=== PATIENT | male | born 1960 ===

== ENCOUNTER 2023-12-23 09:01 | Inpatient (IN) | payer OTHER ==
[~2023-12-23] VITALS: Ht 167.6 cm; Wt 72.6 kg
[2023-12-23] MEDS ORDERED: OSTERA TABLET1 EACH PO (17:26)
[2023-12-23] MEDS ORDERED: FLOMAX0.4 MG PO (17:27)
[2023-12-23] MEDS ORDERED: GLYCOTROL CAPS1 EACH PO (17:27)
[2023-12-23] MEDS ORDERED: SINEMET 25-1001 EACH PO (17:29)
[2023-12-23] MEDS ORDERED: TRAZODONE50 MG PO (17:30)
[2023-12-23] MEDS ORDERED: LIPITOR10 MG PO (17:30)
[2023-12-23] MEDS ORDERED: REMERON SOLTAB45 MG PO (17:42)
[2023-12-23] MEDS ORDERED: PROZAC40 M1 PO (17:43)
[2023-12-23] MEDS ORDERED: BENZONATATE100 M1 PO (17:43)
[2023-12-23] MEDS ORDERED: COLACE100 MG PO (17:49)
[2023-12-23] MEDS ORDERED: DILTIAZEM 24HR180 MG PO (17:50)
[2023-12-23] MEDS ORDERED: TENORMIN25 M1 PO (17:51)
[2023-12-23] MEDS ORDERED: SEROQUEL300 MG PO (17:53)
[2023-12-23] MEDS ORDERED: SEROQUEL100 MG PO (17:54)
[2023-12-23] MEDS ORDERED: VISTARIL25 M2 PO (17:56)
[2023-12-23] MEDS ORDERED: FEOSOL325 MG PO (18:16)
[2023-12-23] MEDS ORDERED: IBU800 MG PO (18:18)
[2023-12-23] MEDS ORDERED: PLAVIX75 M1 PO (18:19)
[2023-12-23] MEDS ORDERED: ASPIRIN ADULT L81 M2 PO (18:21)
[2023-12-23] MEDS ORDERED: DAILY VITE1 EACH PO (18:22)
[2023-12-23] MEDS ORDERED: hydrOXYzine pamoate 25 MG CAP PO PRN (18:25)
[2023-12-23] MEDS ORDERED: BENZONATATE 100 MG CAP PO PRN (18:30)
[2023-12-23] MEDS ORDERED: DOCUSATE SODIUM 100 MG CAP PO PRN (18:30)
[2023-12-23] MEDS ORDERED: IBUPROFEN 600 MG TAB PO PRN (18:55)
[2023-12-23] MEDS ORDERED: LORazepam 2 MG/ML VIAL IM PRN (19:10)
[2023-12-23] MEDS ORDERED: Ziprasidone Mesylate 20 MG VIAL IM PRN (19:20)
[2023-12-23] MEDS ORDERED: Water, Sterile 10 ML VIAL IM PRN (19:25)
[2023-12-23] MEDS ORDERED: Magnesium Hydroxide 30 ML UDC PO PRN (19:30)
[2023-12-23] MEDS ORDERED: MG-AL HYDROXIDE/SIMETICONE 30 ML UDC PO PRN (19:30)
[2023-12-23] MEDS ORDERED: ACETAMINOPHEN 325 MG TAB PO PRN (19:30)
[2023-12-23] MEDS ORDERED: Menthol/Zinc Oxide 4 GM THIN T PRN (19:35)
[2023-12-23 20:00] VITALS: BP 107/65
[2023-12-23] MEDS ORDERED: Carbidopa/Levodopa 25/100MG 1 TAB TAB PO SCH (21:00)
[2023-12-23] MEDS ORDERED: cloZAPine 25 MG TAB PO SCH (21:00)
[2023-12-23] MEDS ORDERED: Mirtazapine 15 MG TAB PO SCH (21:00)
[2023-12-23] MEDS ORDERED: QUETIAPINE FUMARATE 100 MG TAB PO SCH ×2 (21:00→22:00)
[2023-12-24 06:34] LABS: BASO % 0.5 % (0.0-1.0); EOS # 0.2 10*3/uL (0.0-0.4); EOS % 3.1 % (1.0-4.0); HEMATOCRIT 33.6 % (42.0-52.0); LYMPH # 1.8 10*3/uL (1.3-4.4); MEAN CELL VOLUME 103.4 fl (80.0-94.0); MEAN CORPUSCULAR HGB 33.2 pg (27.0-31.0); MEAN CORPUSCULAR HGB CONC 32.1 g/dl (33.0-37.0); MONO # 0.6 10*3/uL (0.1-1.0); MONO % 8.4 % (3.0-9.0); NEUT % 60.4 % (47.0-73.0); PLATELET COUNT AUTOMATED 239 10*3/uL (130-400); RED BLOOD COUNT 3.25 10*6/uL (4.50-5.90); RED CELL DISTRI WIDTH 13.7 % (0-14.5); WHITE BLOOD COUNT 6.6 10*3/uL (4.8-10.8)
[2023-12-24 07:03] LABS: ALKALINE PHOSPHATASE 102 U/L (46-116); BUN 15 mg/dl (9-23); CHLORIDE 108 mmol/L (98-107); CHOLESTEROL 134 mg/dL (<200); LDL CHOLESTEROL 62 mg/dL (9-159); TOTAL PROTEIN 5.8 gm/dL (6.0-8.0); TRIGLYCERIDES 120 mg/dl (<150)
[2023-12-24 07:04] LABS: VITAMIN D, 25-HYDROXY 61.8 ng/mL (30-100)
[2023-12-24 07:11] LABS: SGPT/ALT < 7 U/L (5-49)
[2023-12-24 08:00] VITALS: BP 102/50
[2023-12-24] MEDS ORDERED: QUETIAPINE FUMARATE 100 MG TAB PO SCH (09:00)
[2023-12-24] MEDS ORDERED: Tamsulosin Hydrochloride 0.4 MG CAP PO SCH (09:00)
[2023-12-24] MEDS ORDERED: ATENOLOL 25 MG TAB PO SCH (09:00)
[2023-12-24] MEDS ORDERED: Clopidogrel Hydrogen Sulfate 75 MG TAB PO SCH (09:00)
[2023-12-24] MEDS ORDERED: FERROUS SULFATE 325 MG TAB PO SCH (09:00)
[2023-12-24] MEDS ORDERED: ATORVASTATIN CALCIUM 10 MG TAB PO SCH (09:00)
[2023-12-24] MEDS ORDERED: DILTIAZEM CD 180 MG CAP PO SCH (09:00)
[2023-12-24] MEDS ORDERED: ASPIRIN ENTERIC COATED 81 MG TAB PO SCH (09:00)
[2023-12-24 20:00] VITALS: BP 100/64
[2023-12-24] MEDS ORDERED: cloZAPine 25 MG TAB PO SCH (21:00)
[2023-12-24] MEDS ORDERED: RISPERIDONE 2 MG TAB PO SCH (21:00)
[2023-12-25 08:46] VITALS: BP 122/70
[2023-12-25] MEDS ORDERED: cloZAPine 25 MG TAB PO SCH (09:00)
[2023-12-25 20:00] VITALS: BP 117/57
[2023-12-25] MEDS ORDERED: cloZAPine 100 MG TAB PO SCH (21:00)
[2023-12-25] MEDS ORDERED: clomiPRAMINE Hydrochloride 25 MG CAP PO SCH (21:00)
[2023-12-26 07:39] VITALS: BP 108/58
[2023-12-26] MEDS ORDERED: RISPERIDONE 125 MG/0.35 ML SUSER.SYR SQ SCH (09:00)
[2023-12-26] MEDS ORDERED: RISPERIDONE 250 MG/0.7 ML SQ SCH (12:00)
[2023-12-26 20:00] VITALS: BP 90/54
[2023-12-26] MEDS ORDERED: cloZAPine 100 MG TAB PO SCH (21:00)
[2023-12-26] MEDS ORDERED: clomiPRAMINE Hydrochloride 25 MG CAP PO SCH (21:00)
[2023-12-27 08:00] VITALS: BP 121/67
[2023-12-27 20:00] VITALS: BP 117/53
[2023-12-27] MEDS ORDERED: clomiPRAMINE Hydrochloride 25 MG CAP PO SCH (21:00)
[2023-12-28 07:39] VITALS: BP 119/59
[2023-12-28 20:48] VITALS: BP 98/59
[2023-12-29 08:22] VITALS: BP 111/62
[2023-12-29 20:00] VITALS: BP 106/54
[2023-12-30 07:38] VITALS: BP 112/60
[2023-12-30 20:00] VITALS: BP 105/66
[2023-12-31 07:52] VITALS: BP 111/64
[2023-12-31 20:00] VITALS: BP 102/58
[2024-01-01 07:06] LABS: BASO % 0.4 % (0.0-1.0); EOS # 0.2 10*3/uL (0.0-0.4); EOS % 2.1 % (1.0-4.0); HEMATOCRIT 39.1 % (42.0-52.0); LYMPH # 1.7 10*3/uL (1.3-4.4); LYMPH % 23.6 % (27.0-41.0); MEAN CELL VOLUME 105.1 fl (80.0-94.0); MEAN CORPUSCULAR HGB 33.1 pg (27.0-31.0); MEAN CORPUSCULAR HGB CONC 31.5 g/dl (33.0-37.0); MEAN PLATELET VOLUME 9.3 fl (9.6-12.3); MONO # 0.7 10*3/uL (0.1-1.0); MONO % 9.7 % (3.0-9.0); NEUT # 4.5 10*3/uL (2.3-7.9); NEUT % 63.8 % (47.0-73.0); PLATELET COUNT AUTOMATED 241 10*3/uL (130-400); RED BLOOD COUNT 3.72 10*6/uL (4.50-5.90); RED CELL DISTRI WIDTH 14.3 % (0-14.5)
[2024-01-01 07:28] LABS: ALKALINE PHOSPHATASE 109 U/L (46-116); BUN 14 mg/dl (9-23); CHLORIDE 109 mmol/L (98-107); POTASSIUM 4.6 mmol/L (3.4-5.1); SGPT/ALT 10 U/L (5-49)
[2024-01-01 08:00] VITALS: BP 118/81
[2024-01-01 20:00] VITALS: BP 105/64
[2024-01-02 08:00] VITALS: BP 116/62
[2024-01-02 12:14] VITALS: BP 122/69
[2024-01-02 15:27] LABS: BILIRUBIN Negative (Negative); BLOOD 3+ (Negative); CLARITY Cloudy (Clear); COLOR Yellow (Yellow); GLUCOSE Negative (Negative); KETONE Negative (Negative); LEUKO ESTERASE 1+ (Negative); NITRITE Negative (Negative); SPECIFIC GRAVITY 1.025 (1.001-1.030)
[2024-01-02 15:43] LABS: BACTERIA 1+; WBC TNTC wbc/hpf (0-5)
[2024-01-02] MEDS ORDERED: Fosfomycin Tromethamine 3 GM PDS PO SCH (19:50)
[2024-01-02 20:00] VITALS: BP 100/61
[2024-01-03 07:47] VITALS: BP 105/60
[2024-01-03] MEDS ORDERED: UZEDY250 MG/0.7 SQ (09:54)
[2024-01-03 19:04] VITALS: BP 107/64
[2024-01-04 08:00] VITALS: BP 130/80
[2024-01-04] MEDS ORDERED: CLOMIPRAMINE25 MG PO (09:38)
[2024-01-04] MEDS ORDERED: CLOZAPINE100 MG PO (09:41)
[2024-01-21] MEDS ORDERED: RISPERIDONE 125 MG/0.35 ML SUSER.SYR SQ SCH (09:00)
== END 2024-01-04 17:24 | DRG 750 ==
LOC: 3N 09:01
PROVIDERS: Counselor Professional; ADMIT Psychiatry & Neurology Psychiatry; ATTEND Psychiatry & Neurology Psychiatry
PROC: GZHZZZZ Group Psychotherapy (ICD-10-PCS; principal; 2023-12-23)
PROC: GZ56ZZZ Individual Psychotherapy, Supportive (ICD-10-PCS; 2023-12-23)
PROC: 0HBRXZZ Excision of Toe Nail, External Approach (ICD-10-PCS; 2024-01-03)
PROC: 0HBRXZZ Excision of Toe Nail, External Approach (ICD-10-PCS; 2024-01-03)
PROC: 0HBRXZZ Excision of Toe Nail, External Approach (ICD-10-PCS; 2024-01-03)
PROC: 0HBRXZZ Excision of Toe Nail, External Approach (ICD-10-PCS; 2024-01-03)
PROC: 0HBRXZZ Excision of Toe Nail, External Approach (ICD-10-PCS; 2024-01-03)
PROC: 0HBRXZZ Excision of Toe Nail, External Approach (ICD-10-PCS; 2024-01-03)
PROC: 0HBRXZZ Excision of Toe Nail, External Approach (ICD-10-PCS; 2024-01-03)
PROC: 0HBRXZZ Excision of Toe Nail, External Approach (ICD-10-PCS; 2024-01-03)
PROC: 0HBRXZZ Excision of Toe Nail, External Approach (ICD-10-PCS; 2024-01-03)
PROC: 0HBRXZZ Excision of Toe Nail, External Approach (ICD-10-PCS; 2024-01-03)
DX: F25.0 Schizoaffective disorder, bipolar type (principal); E44.0 Moderate protein-calorie malnutrition; G20.A1 Parkinson's disease without dyskinesia, without mention of fluctuations; R45.851 Suicidal ideations; R33.9 Retention of urine, unspecified; N40.0 Benign prostatic hyperplasia without lower urinary tract symptoms; N18.9 Chronic kidney disease, unspecified; I12.9 Hypertensive chronic kidney disease with stage 1 through stage 4 chronic kidney disease, or unspecified chronic kidney disease; D53.9 Nutritional anemia, unspecified; R73.9 Hyperglycemia, unspecified; B35.1 Tinea unguium; F42.9 Obsessive-compulsive disorder, unspecified; E78.5 Hyperlipidemia, unspecified; Z79.899 Other long term (current) drug therapy; Z79.01 Long term (current) use of anticoagulants; Z68.25 Body mass index [BMI] 25.0-25.9, adult; Z79.2 Long term (current) use of antibiotics; Z87.891 Personal history of nicotine dependence

== ENCOUNTER 2024-04-21 16:59 | Inpatient (IN) | payer OTHER ==
[~2024-04-21] VITALS: Ht 162.5 cm; Wt 70.3 kg
[~2024-04-21 16:59] MED LIST: ASPIRIN ADULT L81 M2 PO; BENZONATATE100 M1 PO; CLOMIPRAMINE25 MG PO; CLOZAPINE100 MG PO; COLACE100 MG PO; DAILY VITE1 EACH PO; DILTIAZEM 24HR180 MG PO; FEOSOL325 MG PO; FLOMAX0.4 MG PO; GLYCOTROL CAPS1 EACH PO; IBU800 MG PO; LIPITOR10 MG PO; OSTERA TABLET1 EACH PO; PLAVIX75 M1 PO; PROZAC40 M1 PO; REMERON SOLTAB45 MG PO; SEROQUEL100 MG PO; SEROQUEL300 MG PO; SINEMET 25-1001 EACH PO; TENORMIN25 M1 PO; TRAZODONE50 MG PO; UZEDY250 MG/0.7 SQ; VISTARIL25 M2 PO
[2024-04-21 17:15] VITALS: BP 162/100
[2024-04-21 17:43] LABS: BASO % 0.3 % (0.0-1.0); EOS # 0.1 10*3/uL (0.0-0.4); EOS % 1.7 % (1.0-4.0); HEMATOCRIT 38.3 % (42.0-52.0); MEAN CORPUSCULAR HGB 33.2 pg (27.0-31.0); MEAN CORPUSCULAR HGB CONC 33.2 g/dl (33.0-37.0); MEAN PLATELET VOLUME 9.5 fl (9.6-12.3); MONO # 0.6 10*3/uL (0.1-1.0); NEUT % 60.9 % (47.0-73.0); PLATELET COUNT AUTOMATED 207 10*3/uL (130-400); RED BLOOD COUNT 3.83 10*6/uL (4.50-5.90); RED CELL DISTRI WIDTH 14.1 % (0-14.5); WHITE BLOOD COUNT 6.6 10*3/uL (4.8-10.8)
[2024-04-21 18:05] LABS: BUN 22 mg/dl (9-23); CHLORIDE 104 mmol/L (98-107); POTASSIUM 4.3 mmol/L (3.4-5.1)
[2024-04-21 18:07] LABS: BILIRUBIN Negative (Negative); BLOOD Negative (Negative); CLARITY Clear (Clear); COLOR Yellow (Yellow); GLUCOSE Negative (Negative); KETONE Negative (Negative); LEUKO ESTERASE Negative (Negative); NITRITE Negative (Negative); PH 5.5 (4.5-8.0); UROBILINOGEN 0.2 E.U./dl (0.0-1.0)
[2024-04-21 18:11] LABS: URINE AMPHETAMINES Negative (1000ng/ml); URINE BARBITURATES Negative (200ng/ml); URINE BENZODIAZEPINES Negative (200ng/ml); URINE CANNABINOIDS (THC) Negative (50ng/ml); URINE COCAINE Negative (300ng/ml); URINE METHADONE Negative (300ng/ml); URINE OPIATES Negative (300ng/ml); URINE PHENCYCLIDINE Negative (25ng/ml)
[2024-04-21 18:14] LABS: BACTERIA TRACE; EPITHELIAL CELLS 0-2; RBC 0-2 rbc/hpf (0-2); WBC 0-2 wbc/hpf (0-5)
[2024-04-21 18:25] LABS: ETHYL ALCOHOL < 3.0 mg/dl (<3)
[2024-04-21 19:39] VITALS: BP 129/81
[2024-04-21 20:45] VITALS: BP 144/89
[2024-04-21] MEDS ORDERED: CLONAZEPAM1 MG PO (21:56)
[2024-04-21] MEDS ORDERED: CLOZARIL50 MG PO (22:00)
[2024-04-21] MEDS ORDERED: EXELON1 EAC2 TD (22:06)
[2024-04-21] MEDS ORDERED: ATARAX,VISTARIL50 MG PO (22:09)
[2024-04-21] MEDS ORDERED: hydrOXYzine pamoate 25 MG CAP PO PRN (22:10)
[2024-04-21] MEDS ORDERED: MIDODRINE HCL10 MG PO (22:14)
[2024-04-21] MEDS ORDERED: MIRALAX17 GM PO (22:19)
[2024-04-21] MEDS ORDERED: LORazepam 1 MG TAB PO PRN (22:25)
[2024-04-21] MEDS ORDERED: LORazepam 2 MG/ML VIAL IM PRN (22:25)
[2024-04-21] MEDS ORDERED: Ziprasidone Mesylate 20 MG VIAL IM PRN (22:30)
[2024-04-21] MEDS ORDERED: Water, Sterile 10 ML VIAL IM PRN (22:30)
[2024-04-21] MEDS ORDERED: Magnesium Hydroxide 30 ML UDC PO PRN (22:35)
[2024-04-21] MEDS ORDERED: ACETAMINOPHEN 325 MG TAB PO PRN (22:35)
[2024-04-21] MEDS ORDERED: Menthol/Zinc Oxide 4 GM THIN T PRN (22:35)
[2024-04-21] MEDS ORDERED: MG-AL HYDROXIDE/SIMETICONE 30 ML UDC PO PRN (22:35)
[2024-04-22] MEDS ORDERED: Polyethylene Glycol 3350 17 GM PACKET PO PRN (02:35)
[2024-04-22] MEDS ORDERED: DOCUSATE SODIUM 100 MG CAP PO PRN (02:35)
[2024-04-22 06:59] LABS: BASO % 0.6 % (0.0-1.0); EOS # 0.1 10*3/uL (0.0-0.4); HEMATOCRIT 42.4 % (42.0-52.0); MEAN CELL VOLUME 101.4 fl (80.0-94.0); MEAN CORPUSCULAR HGB 32.5 pg (27.0-31.0); MEAN CORPUSCULAR HGB CONC 32.1 g/dl (33.0-37.0); MEAN PLATELET VOLUME 8.9 fl (9.6-12.3); MONO # 0.5 10*3/uL (0.1-1.0); MONO % 8.7 % (3.0-9.0); NEUT # 3.4 10*3/uL (2.3-7.9); PLATELET COUNT AUTOMATED 213 10*3/uL (130-400); RED BLOOD COUNT 4.18 10*6/uL (4.50-5.90); RED CELL DISTRI WIDTH 13.6 % (0-14.5); WHITE BLOOD COUNT 5.4 10*3/uL (4.8-10.8)
[2024-04-22 07:40] LABS: ALKALINE PHOSPHATASE 105 U/L (46-116); BUN 15 mg/dl (9-23); CHLORIDE 103 mmol/L (98-107); CHOLESTEROL 149 mg/dL (<200); LDL CHOLESTEROL 68 mg/dL (9-159); POTASSIUM 4.3 mmol/L (3.4-5.1); SGPT/ALT 14 U/L (5-49); TOTAL PROTEIN 6.3 gm/dL (6.0-8.0); TRIGLYCERIDES 88 mg/dl (<150)
[2024-04-22 08:07] LABS: VITAMIN D, 25-HYDROXY 107.8 ng/mL (30-100)
[2024-04-22 08:43] VITALS: BP 114/84
[2024-04-22] MEDS ORDERED: Tamsulosin Hydrochloride 0.4 MG CAP PO SCH (09:00)
[2024-04-22] MEDS ORDERED: FERROUS SULFATE 325 MG TAB PO SCH (09:00)
[2024-04-22] MEDS ORDERED: Carbidopa/Levodopa 25/100MG 1 TAB TAB PO SCH (09:00)
[2024-04-22] MEDS ORDERED: Midodrine Hydrochloride 5 MG TAB PO SCH (09:00)
[2024-04-22] MEDS ORDERED: ASPIRIN ENTERIC COATED 81 MG TAB PO SCH (09:00)
[2024-04-22] MEDS ORDERED: RIVASTIGMINE 13.3 MG/24 HR TDM T SCH ×2 (09:00)
[2024-04-22] MEDS ORDERED: clonAZEPAM 1 MG TAB PO SCH (09:00)
[2024-04-22] MEDS ORDERED: ATORVASTATIN CALCIUM 10 MG TAB PO SCH (09:00)
[2024-04-22] MEDS ORDERED: Clopidogrel Hydrogen Sulfate 75 MG TAB PO SCH (09:00)
[2024-04-22] MEDS ORDERED: RISPERIDONE 250 MG/0.7 ML SQ SCH (11:00)
[2024-04-22 20:00] VITALS: BP 116/67
[2024-04-22] MEDS ORDERED: Memantine Hydrochloride 5 MG TAB PO SCH (21:00)
[2024-04-22] MEDS ORDERED: clomiPRAMINE Hydrochloride 25 MG CAP PO SCH (21:00)
[2024-04-23 08:00] VITALS: BP 136/83
[2024-04-23] MEDS ORDERED: hydrOXYzine hydrochloride 50 MG/ML VIAL IM ONE (14:10)
[2024-04-23 20:00] VITALS: BP 147/82
[2024-04-24 08:09] VITALS: BP 141/80
[2024-04-24] MEDS ORDERED: RISPERIDONE 250 MG/0.7 ML SQ SCH (09:00)
[2024-04-24] MEDS ORDERED: clonAZEPAM 0.5 MG TAB PO SCH (13:00)
[2024-04-24 20:00] VITALS: BP 137/78
[2024-04-24] MEDS ORDERED: clomiPRAMINE Hydrochloride 25 MG CAP PO SCH (21:00)
[2024-04-25 07:52] VITALS: BP 130/75
[2024-04-25] MEDS ORDERED: LIDOCAINE 1 EA PATCH T SCH ×2 (10:45→12:00)
[2024-04-25 20:00] VITALS: BP 121/73
[2024-04-25] MEDS ORDERED: Memantine Hydrochloride 5 MG TAB PO SCH (21:00)
[2024-04-26 08:00] VITALS: BP 133/75
[2024-04-26] MEDS ORDERED: hydrOXYzine pamoate 25 MG CAP PO SCH (13:00)
[2024-04-26 20:00] VITALS: BP 132/70
[2024-04-26] MEDS ORDERED: Memantine Hydrochloride 10 MG TAB PO SCH (21:00)
[2024-04-26] MEDS ORDERED: Rivastigmine Tartrate 3 MG CAP PO SCH (21:00)
[2024-04-27 01:06] LABS: TOTAL (CLO+NORCLO) 314 ng/mL (220-500)
[2024-04-27 06:41] LABS: BASO % 0.2 % (0.0-1.0); EOS % 0.2 % (1.0-4.0); HEMATOCRIT 38.7 % (42.0-52.0); MEAN CELL VOLUME 99.2 fl (80.0-94.0); MEAN CORPUSCULAR HGB 33.1 pg (27.0-31.0); MEAN CORPUSCULAR HGB CONC 33.3 g/dl (33.0-37.0); MEAN PLATELET VOLUME 9.1 fl (9.6-12.3); MONO # 0.5 10*3/uL (0.1-1.0); MONO % 7.8 % (3.0-9.0); NEUT # 4.7 10*3/uL (2.3-7.9); NEUT % 78.9 % (47.0-73.0); PLATELET COUNT AUTOMATED 195 10*3/uL (130-400); RED CELL DISTRI WIDTH 13.8 % (0-14.5); WHITE BLOOD COUNT 5.9 10*3/uL (4.8-10.8)
[2024-04-27 07:16] LABS: ALKALINE PHOSPHATASE 111 U/L (46-116); BUN 14 mg/dl (9-23); CHLORIDE 103 mmol/L (98-107); POTASSIUM 4.9 mmol/L (3.4-5.1); SGPT/ALT 19 U/L (5-49)
[2024-04-27 08:00] VITALS: BP 139/86
[2024-04-27] MEDS ORDERED: Memantine Hydrochloride 5 MG TAB PO SCH (09:00)
[2024-04-27] MEDS ORDERED: clonAZEPAM 2 MG TAB PO SCH (13:00)
[2024-04-27 20:00] VITALS: BP 144/67
[2024-04-27] MEDS ORDERED: Rivastigmine Tartrate 1.5 MG CAP PO SCH (21:00)
[2024-04-27] MEDS ORDERED: Memantine Hydrochloride 10 MG TAB PO SCH (21:00)
[2024-04-28 07:53] VITALS: BP 117/73
[2024-04-28] MEDS ORDERED: Rivastigmine Tartrate 3 MG CAP PO SCH (09:00)
[2024-04-28 14:33] LABS: BILIRUBIN Negative (Negative); BLOOD Negative (Negative); CLARITY Clear (Clear); COLOR Yellow (Yellow); GLUCOSE Negative (Negative); KETONE Negative (Negative); LEUKO ESTERASE Negative (Negative); NITRITE Negative (Negative); SPECIFIC GRAVITY 1.015 (1.001-1.030); UROBILINOGEN 0.2 E.U./dl (0.0-1.0)
[2024-04-28 14:50] LABS: RBC 0-2 rbc/hpf (0-2); WBC 0-2 wbc/hpf (0-5)
[2024-04-28 20:00] VITALS: BP 124/68
[2024-04-29 08:35] VITALS: BP 126/71
[2024-04-29] MEDS ORDERED: Glycerin/Hypromellose/Polyet 300 DRP BOT OPH SCH (16:30)
[2024-04-29 20:00] VITALS: BP 102/52
[2024-04-30 08:00] VITALS: BP 110/63
[2024-04-30] MEDS ORDERED: clonAZEPAM 1 MG TAB PO SCH (09:00)
[2024-04-30 20:00] VITALS: BP 101/64
[2024-05-01 08:00] VITALS: BP 130/72
[2024-05-01 08:51] VITALS: BP 130/72
[2024-05-01] MEDS ORDERED: clomiPRAMINE Hydrochloride 25 MG CAP PO SCH ×2 (09:00→21:00)
[2024-05-01 20:00] VITALS: BP 128/63
[2024-05-02 08:33] VITALS: BP 134/43
[2024-05-02 20:00] VITALS: BP 113/62
[2024-05-03 06:32] LABS: BASO % 0.3 % (0.0-1.0); EOS % 0.1 % (1.0-4.0); HEMATOCRIT 36.6 % (42.0-52.0); MEAN CELL VOLUME 102.2 fl (80.0-94.0); MEAN CORPUSCULAR HGB 32.7 pg (27.0-31.0); MEAN PLATELET VOLUME 9.2 fl (9.6-12.3); MONO # 0.6 10*3/uL (0.1-1.0); MONO % 7.8 % (3.0-9.0); NEUT # 5.4 10*3/uL (2.3-7.9); NEUT % 71.2 % (47.0-73.0); PLATELET COUNT AUTOMATED 201 10*3/uL (130-400); RED BLOOD COUNT 3.58 10*6/uL (4.50-5.90); RED CELL DISTRI WIDTH 13.9 % (0-14.5); WHITE BLOOD COUNT 7.6 10*3/uL (4.8-10.8)
[2024-05-03 06:51] LABS: BUN 17 mg/dl (9-23); CHLORIDE 102 mmol/L (98-107); POTASSIUM 4.6 mmol/L (3.4-5.1)
[2024-05-03 07:52] VITALS: BP 121/75
[2024-05-03] MEDS ORDERED: Dextromethorphan/Quinidine 20-10 mg cap PO ONE (16:00)
[2024-05-03] MEDS ORDERED: hydrOXYzine pamoate 25 MG CAP PO ONE (16:00)
[2024-05-03 20:00] VITALS: BP 131/64
[2024-05-03] MEDS ORDERED: hydrOXYzine pamoate 25 MG CAP PO SCH (20:00)
[2024-05-04] MEDS ORDERED: hydrOXYzine pamoate 25 MG CAP PO SCH
[2024-05-04] MEDS ORDERED: SODIUM CHLORIDE 0.9% 1,000 ML IV ONE ×2 (01:20→01:34)
[2024-05-04] MEDS ORDERED: LORazepam 2 MG/ML VIAL IV PRN ×2 (01:20→05:20)
[2024-05-04 01:40] VITALS: BP 144/73
[2024-05-04 01:42] LABS: BASO % 0.2 % (0.0-1.0); EOS % 0.1 % (1.0-4.0); HEMATOCRIT 37.9 % (42.0-52.0); MEAN CORPUSCULAR HGB 32.7 pg (27.0-31.0); MEAN CORPUSCULAR HGB CONC 32.7 g/dl (33.0-37.0); MONO # 0.5 10*3/uL (0.1-1.0); MONO % 5.5 % (3.0-9.0); NEUT % 80.2 % (47.0-73.0); PLATELET COUNT AUTOMATED 198 10*3/uL (130-400); RED BLOOD COUNT 3.79 10*6/uL (4.50-5.90); RED CELL DISTRI WIDTH 13.7 % (0-14.5); WHITE BLOOD COUNT 8.8 10*3/uL (4.8-10.8)
[2024-05-04] MEDS ORDERED: LACOSAMIDE 50 MG TAB PO SCH ×2 (02:00→22:00)
[2024-05-04 02:01] LABS: BUN 19 mg/dl (9-23); CHLORIDE 102 mmol/L (98-107); POTASSIUM 4.2 mmol/L (3.4-5.1)
[2024-05-04 05:25] VITALS: BP 150/74
[2024-05-04 08:00] VITALS: BP 137/78
[2024-05-04] MEDS ORDERED: Dextromethorphan/Quinidine 20-10 mg cap PO SCH (09:00)
[2024-05-04] MEDS ORDERED: GADOTERATE MEGLUMINE 7.5 MMOL/15 ML VIAL IV ONE (11:14)
[2024-05-04 20:00] VITALS: BP 134/74
[2024-05-05 08:00] VITALS: BP 149/90
[2024-05-05] MEDS ORDERED: Ondansetron Hydrochloride 4 MG/2 ML VIAL IV ONE (12:05)
== END 2024-05-05 14:30 | disposition short-term general hospital (02) | DRG 761 ==
LOC: ED 16:59 → 3N 18:31 → EDHOLD 18:31 → 3N 20:39
PROVIDERS: Emergency Medicine; Nurse Practitioner; Registered Nurse; Student in an Organized Health Care Education/Training Program; ADMIT Psychiatry & Neurology Psychiatry; ATTEND Psychiatry & Neurology Psychiatry
PROC: GZHZZZZ Group Psychotherapy (ICD-10-PCS; principal; 2024-04-22)
PROC: GZ51ZZZ Individual Psychotherapy, Behavioral (ICD-10-PCS; 2024-04-22)
PROC: 0HBRXZZ Excision of Toe Nail, External Approach (ICD-10-PCS; 2024-04-22)
PROC: 0HBRXZZ Excision of Toe Nail, External Approach (ICD-10-PCS; 2024-04-22)
PROC: 0HBRXZZ Excision of Toe Nail, External Approach (ICD-10-PCS; 2024-04-22)
PROC: 0HBRXZZ Excision of Toe Nail, External Approach (ICD-10-PCS; 2024-04-22)
PROC: 0HBRXZZ Excision of Toe Nail, External Approach (ICD-10-PCS; 2024-04-22)
PROC: 0HBRXZZ Excision of Toe Nail, External Approach (ICD-10-PCS; 2024-04-22)
PROC: 0HBRXZZ Excision of Toe Nail, External Approach (ICD-10-PCS; 2024-04-22)
PROC: 0HBRXZZ Excision of Toe Nail, External Approach (ICD-10-PCS; 2024-04-22)
PROC: 0HBRXZZ Excision of Toe Nail, External Approach (ICD-10-PCS; 2024-04-22)
PROC: 0HBRXZZ Excision of Toe Nail, External Approach (ICD-10-PCS; 2024-04-22)
DX: F25.0 Schizoaffective disorder, bipolar type (principal); G21.11 Neuroleptic induced parkinsonism; F33.2 Major depressive disorder, recurrent severe without psychotic features; R56.9 Unspecified convulsions; R33.9 Retention of urine, unspecified; N40.0 Benign prostatic hyperplasia without lower urinary tract symptoms; D53.9 Nutritional anemia, unspecified; E78.5 Hyperlipidemia, unspecified; Z87.891 Personal history of nicotine dependence; F41.9 Anxiety disorder, unspecified; B35.1 Tinea unguium; L60.3 Nail dystrophy; N18.30 Chronic kidney disease, stage 3 unspecified; I12.9 Hypertensive chronic kidney disease with stage 1 through stage 4 chronic kidney disease, or unspecified chronic kidney disease; Z86.73 Personal history of transient ischemic attack (TIA), and cerebral infarction without residual deficits

== ENCOUNTER 2024-08-11 14:41 | Inpatient (IN) | payer OTHER ==
[~2024-08-11] VITALS: Ht 167.6 cm; Wt 64.5 kg
[~2024-08-11 14:41] MED LIST changes: +ATARAX,VISTARIL50 MG PO; +CLONAZEPAM1 MG PO; +CLOZARIL50 MG PO; +EXELON1 EAC2 TD; +MIDODRINE HCL10 MG PO; +MIRALAX17 GM PO
[2024-08-11] MEDS ORDERED: LORazepam 1 MG TAB PO PRN (15:10)
[2024-08-11] MEDS ORDERED: Ziprasidone Mesylate 20 MG VIAL IM PRN (15:15)
[2024-08-11] MEDS ORDERED: hydrOXYzine hydrochloride 50 MG/ML VIAL IM PRN (15:15)
[2024-08-11] MEDS ORDERED: COBENFY (15:15)
[2024-08-11] MEDS ORDERED: ATENOLOL25 MG PO (15:19)
[2024-08-11] MEDS ORDERED: VITAMIN D31250 MC2 PO (15:22)
[2024-08-11] MEDS ORDERED: B12 ACTIVE1000 MCG PO (15:23)
[2024-08-11] MEDS ORDERED: DAILY VALUE1 EACH PO (15:25)
[2024-08-11] MEDS ORDERED: ACETAMINOPHEN 325 MG TAB PO PRN (15:30)
[2024-08-11] MEDS ORDERED: MG-AL HYDROXIDE/SIMETICONE 30 ML UDC PO PRN (15:30)
[2024-08-11] MEDS ORDERED: Magnesium Hydroxide 30 ML UDC PO PRN (15:30)
[2024-08-11] MEDS ORDERED: Water, Sterile 10 ML VIAL IM PRN (15:35)
[2024-08-11 18:30] VITALS: BP 99/57
[2024-08-11 20:00] VITALS: BP 99/57
[2024-08-11] MEDS ORDERED: Memantine Hydrochloride 10 MG TAB PO SCH (21:00)
[2024-08-12 07:14] LABS: BASO % 0.2 % (0.0-1.0); EOS # 0.1 10*3/uL (0.0-0.4); EOS % 1.9 % (1.0-4.0); HEMATOCRIT 39.9 % (42.0-52.0); MEAN CELL VOLUME 102.6 fl (80.0-94.0); MEAN CORPUSCULAR HGB 33.4 pg (27.0-31.0); MEAN CORPUSCULAR HGB CONC 32.6 g/dl (33.0-37.0); MEAN PLATELET VOLUME 10.8 fl (9.6-12.3); MONO # 0.3 10*3/uL (0.1-1.0); MONO % 5.4 % (3.0-9.0); NEUT # 4.3 10*3/uL (2.3-7.9); NEUT % 72.1 % (47.0-73.0); PLATELET COUNT AUTOMATED 121 10*3/uL (130-400); RED BLOOD COUNT 3.89 10*6/uL (4.50-5.90); RED CELL DISTRI WIDTH 13.2 % (0-14.5); WHITE BLOOD COUNT 5.9 10*3/uL (4.8-10.8)
[2024-08-12 07:48] LABS: ALKALINE PHOSPHATASE 60 U/L (46-116); BUN 13 mg/dl (9-23); CHLORIDE 111 mmol/L (98-107); CHOLESTEROL 107 mg/dL (<200); LDL CHOLESTEROL 55 mg/dL (9-159); POTASSIUM 3.5 mmol/L (3.4-5.1); SGPT/ALT 22 U/L (5-49); TOTAL PROTEIN 5.8 gm/dL (6.0-8.0); TRIGLYCERIDES 101 mg/dl (<150)
[2024-08-12 08:00] VITALS: BP 109/55
[2024-08-12 08:25] LABS: VITAMIN D, 25-HYDROXY 77.5 ng/mL (30-100)
[2024-08-12] MEDS ORDERED: RIVASTIGMINE 13.3 MG/24 HR TDM T SCH (09:00)
[2024-08-12] MEDS ORDERED: ARIPiprazole 10 MG TAB PO SCH (09:00)
[2024-08-12] MEDS ORDERED: Memantine Hydrochloride 5 MG TAB PO SCH (09:00)
[2024-08-12] MEDS ORDERED: BENZONATATE 100 MG CAP PO PRN (10:45)
[2024-08-12] MEDS ORDERED: DOCUSATE SODIUM 100 MG CAP PO PRN (10:45)
[2024-08-12] MEDS ORDERED: Polyethylene Glycol 3350 17 GM PACKET PO PRN (10:50)
[2024-08-12 12:44] LABS: BILIRUBIN Negative (Negative); BLOOD Negative (Negative); CLARITY Cloudy (Clear); COLOR Yellow (Yellow); GLUCOSE Negative (Negative); KETONE Negative (Negative); LEUKO ESTERASE Negative (Negative); NITRITE Negative (Negative); UROBILINOGEN 0.2 E.U./dl (0.0-1.0)
[2024-08-12] MEDS ORDERED: Midodrine Hydrochloride 5 MG TAB PO SCH (13:00)
[2024-08-12 13:13] LABS: CALCIUM OXALATE CRYSTALS 3+; EPITHELIAL CELLS 0-2; MUCOUS 2+
[2024-08-12 13:14] LABS: BACTERIA TRACE
[2024-08-12 20:00] VITALS: BP 109/55
[2024-08-12] MEDS ORDERED: FERROUS SULFATE 325 MG TAB PO SCH (21:00)
[2024-08-13 08:00] VITALS: BP 118/57
[2024-08-13] MEDS ORDERED: Tamsulosin Hydrochloride 0.4 MG CAP PO SCH (09:00)
[2024-08-13] MEDS ORDERED: Clopidogrel Hydrogen Sulfate 75 MG TAB PO SCH (09:00)
[2024-08-13] MEDS ORDERED: MULTIVITAMIN 1 TAB TAB PO SCH (09:00)
[2024-08-13] MEDS ORDERED: ATORVASTATIN CALCIUM 10 MG TAB PO SCH (09:00)
[2024-08-13] MEDS ORDERED: ASPIRIN ENTERIC COATED 81 MG TAB PO SCH (09:00)
[2024-08-13] MEDS ORDERED: Vitamin D 1,000 IU TAB (25 MCG) PO SCH (09:00)
[2024-08-13] MEDS ORDERED: ATENOLOL 25 MG TAB PO SCH (09:00)
[2024-08-13] MEDS ORDERED: CYANOCOBALAMIN 500 MCG TAB PO SCH (09:00)
[2024-08-13 20:00] VITALS: BP 101/60
[2024-08-13] MEDS ORDERED: Memantine Hydrochloride 10 MG TAB PO SCH (21:00)
[2024-08-14 08:00] VITALS: BP 108/72
[2024-08-14] MEDS ORDERED: Memantine Hydrochloride 5 MG TAB PO SCH (09:00)
[2024-08-14] MEDS ORDERED: Desvenlafaxine Succinate 50 MG TER PO SCH (09:00)
[2024-08-14] MEDS ORDERED: Menthol/Zinc Oxide 4 GM THIN T PRN (13:05)
[2024-08-14 20:00] VITALS: BP 98/58
[2024-08-14] MEDS ORDERED: Menthol/Zinc Oxide 4 GM THIN T SCH (22:00)
[2024-08-15 08:16] VITALS: BP 113/68
[2024-08-15] MEDS ORDERED: Rivastigmine Tartrate 9.5 MG/24 HR PATCH T SCH (09:00)
[2024-08-15 20:00] VITALS: BP 97/58
[2024-08-16 08:26] VITALS: BP 108/75
[2024-08-16 20:00] VITALS: BP 110/64
[2024-08-17 07:21] VITALS: BP 108/74
[2024-08-17] MEDS ORDERED: Rivastigmine Tartrate 4.6 MG/24 HR PATCH T SCH (09:00)
[2024-08-17 20:00] VITALS: BP 104/63
[2024-08-18 07:57] VITALS: BP 112/64
[2024-08-18] MEDS ORDERED: VITAMIN E 400 IU CAP PO SCH (11:30)
[2024-08-18 20:00] VITALS: BP 120/60
[2024-08-19 08:00] VITALS: BP 114/74
[2024-08-19] MEDS ORDERED: DIVALPROEX SODIUM 125 MG CAP PO SCH (13:00)
[2024-08-19 20:00] VITALS: BP 97/52
[2024-08-20 08:00] VITALS: BP 114/59
[2024-08-20 20:00] VITALS: BP 110/66
[2024-08-21 08:00] VITALS: BP 96/65
[2024-08-21 20:00] VITALS: BP 103/64
[2024-08-21] MEDS ORDERED: ARIPiprazole 15 MG TAB PO SCH ×2 (21:00)
[2024-08-22] MEDS ORDERED: BENZONATATE 100 MG CAP PO PRN (07:30)
[2024-08-22 08:00] VITALS: BP 111/80
[2024-08-22] MEDS ORDERED: VITAMIN E 400 IU CAP PO SCH (09:00)
[2024-08-22] MEDS ORDERED: Midodrine Hydrochloride 5 MG TAB PO SCH (09:00)
[2024-08-22] MEDS ORDERED: Desvenlafaxine Succinate 50 MG TER PO SCH ×2 (09:00)
[2024-08-22] MEDS ORDERED: FOAM BANDAGE 1 EACH BANDAGE T ONE (14:53)
[2024-08-22 20:00] VITALS: BP 104/52
[2024-08-23 06:31] LABS: BASO % 0.5 % (0.0-1.0); EOS # 0.1 10*3/uL (0.0-0.4); EOS % 0.9 % (1.0-4.0); HEMATOCRIT 39.1 % (42.0-52.0); MEAN CELL VOLUME 101.8 fl (80.0-94.0); MEAN CORPUSCULAR HGB 32.6 pg (27.0-31.0); MEAN PLATELET VOLUME 9.4 fl (9.6-12.3); MONO # 0.5 10*3/uL (0.1-1.0); MONO % 8.4 % (3.0-9.0); NEUT # 3.3 10*3/uL (2.3-7.9); PLATELET COUNT AUTOMATED 189 10*3/uL (130-400); RED BLOOD COUNT 3.84 10*6/uL (4.50-5.90); RED CELL DISTRI WIDTH 14.3 % (0-14.5); WHITE BLOOD COUNT 5.6 10*3/uL (4.8-10.8)
[2024-08-23 06:33] LABS: ALKALINE PHOSPHATASE 67 U/L (46-116); BUN 14 mg/dl (9-23); CHLORIDE 104 mmol/L (98-107); POTASSIUM 4.2 mmol/L (3.4-5.1); SGPT/ALT 15 U/L (5-49); TOTAL PROTEIN 5.7 gm/dL (6.0-8.0)
[2024-08-23 08:00] VITALS: BP 111/61
[2024-08-23 20:00] VITALS: BP 113/61
[2024-08-24 08:24] VITALS: BP 108/70
[2024-08-24] MEDS ORDERED: UZEDY250 MG/0.7 SQ (09:45)
[2024-08-24] MEDS ORDERED: ARIPIPRAZOLE15 MG PO (09:45)
[2024-08-24] MEDS ORDERED: PRISTIQ50 MG PO (09:45)
[2024-09-12] MEDS ORDERED: RISPERIDONE 250 MG/0.7 ML SQ SCH (09:00)
== END 2024-08-24 13:56 | DRG 761 ==
LOC: 3N 14:41
PROVIDERS: Counselor Professional; ADMIT Psychiatry & Neurology Psychiatry; ATTEND Psychiatry & Neurology Psychiatry
PROC: GZHZZZZ Group Psychotherapy (ICD-10-PCS; 2024-08-12)
PROC: GZ51ZZZ Individual Psychotherapy, Behavioral (ICD-10-PCS; 2024-08-12)
PROC: 0HBRXZZ Excision of Toe Nail, External Approach (ICD-10-PCS; principal; 2024-08-15)
PROC: 0HBRXZZ Excision of Toe Nail, External Approach (ICD-10-PCS; 2024-08-15)
PROC: 0HBRXZZ Excision of Toe Nail, External Approach (ICD-10-PCS; 2024-08-15)
PROC: 0HBRXZZ Excision of Toe Nail, External Approach (ICD-10-PCS; 2024-08-15)
PROC: 0HBRXZZ Excision of Toe Nail, External Approach (ICD-10-PCS; 2024-08-15)
PROC: 0HBRXZZ Excision of Toe Nail, External Approach (ICD-10-PCS; 2024-08-15)
PROC: 0HBRXZZ Excision of Toe Nail, External Approach (ICD-10-PCS; 2024-08-15)
PROC: 0HBRXZZ Excision of Toe Nail, External Approach (ICD-10-PCS; 2024-08-15)
PROC: 0HBRXZZ Excision of Toe Nail, External Approach (ICD-10-PCS; 2024-08-15)
PROC: 0HBRXZZ Excision of Toe Nail, External Approach (ICD-10-PCS; 2024-08-15)
DX: F25.0 Schizoaffective disorder, bipolar type (principal); F33.2 Major depressive disorder, recurrent severe without psychotic features; E44.0 Moderate protein-calorie malnutrition; D64.9 Anemia, unspecified; E87.8 Other disorders of electrolyte and fluid balance, not elsewhere classified; G20.A1 Parkinson's disease without dyskinesia, without mention of fluctuations; N40.0 Benign prostatic hyperplasia without lower urinary tract symptoms; F42.9 Obsessive-compulsive disorder, unspecified; I12.9 Hypertensive chronic kidney disease with stage 1 through stage 4 chronic kidney disease, or unspecified chronic kidney disease; N18.30 Chronic kidney disease, stage 3 unspecified; B35.1 Tinea unguium; G40.909 Epilepsy, unspecified, not intractable, without status epilepticus; Z82.3 Family history of stroke; Z82.49 Family history of ischemic heart disease and other diseases of the circulatory system; Z86.73 Personal history of transient ischemic attack (TIA), and cerebral infarction without residual deficits; Z81.8 Family history of other mental and behavioral disorders; Z88.8 Allergy status to other drugs, medicaments and biological substances; Z79.899 Other long term (current) drug therapy; Z68.22 Body mass index [BMI] 22.0-22.9, adult

== ENCOUNTER 2025-01-02 15:06 | Inpatient (IN) | payer MEDICAID ==
[~2025-01-02] VITALS: Ht 167.6 cm; Wt 72.8 kg
[~2025-01-02 15:06] MED LIST changes: +ARIPIPRAZOLE15 MG PO; +ATENOLOL25 MG PO; +B12 ACTIVE1000 MCG PO; +COBENFY; +DAILY VALUE1 EACH PO; +PRISTIQ50 MG PO; +VITAMIN D31250 MC2 PO
[2025-01-02 15:23] VITALS: BP 106/66
[2025-01-02 15:53] LABS: BASO # 0.0 10*3/uL (0.0-0.1); BASO % 0.3 % (0.0-1.0); EOS # 0.1 10*3/uL (0.0-0.4); EOS % 2.2 % (1.0-4.0); MEAN CELL VOLUME 98.2 fl (80.0-94.0); MEAN CORPUSCULAR HGB 31.6 pg (27.0-31.0); MEAN PLATELET VOLUME 8.7 fl (9.6-12.3); MONO # 0.6 10*3/uL (0.1-1.0); MONO % 10.3 % (3.0-9.0); NEUT # 3.5 10*3/uL (2.3-7.9); NEUT % 60.8 % (47.0-73.0); NUCLEATED RED BLOOD CELL 0.0 % (0.0-0.0); NUCLEATED RED BLOOD CELL 0.0 10*3/uL (0.0-0.0); PLATELET COUNT AUTOMATED 227 10*3/uL (130-400); RED CELL DISTRI WIDTH 13.1 % (0-14.5)
[2025-01-02 16:24] LABS: BUN 19 mg/dl (9-23)
[2025-01-02 16:30] LABS: SGPT/ALT < 7 U/L (5-49)
[2025-01-02] MEDS ORDERED: RISPERDAL1 M1 PO (17:42)
[2025-01-02] MEDS ORDERED: KLONOPIN1 M1 PO ×2 (17:48→17:49)
[2025-01-02] MEDS ORDERED: GEODON80 M1 PO (17:48)
[2025-01-02] MEDS ORDERED: ATIVAN1 MG PO (17:51)
[2025-01-02] MEDS ORDERED: VISTARIL25 MG IM (17:52)
[2025-01-02] MEDS ORDERED: VISTARIL25 MG PO (17:52)
[2025-01-02] MEDS ORDERED: GEODON20 MG/1 ML IM (17:53)
[2025-01-02] MEDS ORDERED: LORazepam 1 MG TAB PO PRN (18:00)
[2025-01-02] MEDS ORDERED: ACETAMINOPHEN 325 MG TAB PO PRN (18:00)
[2025-01-02] MEDS ORDERED: hydrOXYzine hydrochloride 50 MG/ML VIAL IM PRN (18:00)
[2025-01-02] MEDS ORDERED: MG-AL HYDROXIDE/SIMETICONE 30 ML UDC PO PRN (18:00)
[2025-01-02] MEDS ORDERED: Menthol/Zinc Oxide 4 GM THIN T PRN (18:15)
[2025-01-02 18:34] VITALS: BP 114/73
[2025-01-02] MEDS ORDERED: Polyethylene Glycol 3350 17 GM PACKET PO PRN (18:40)
[2025-01-02 20:00] VITALS: BP 119/88
[2025-01-02] MEDS ORDERED: Ziprasidone Hydrochloride 40 MG CAP PO SCH (21:00)
[2025-01-02] MEDS ORDERED: risperiDONE 1 MG TAB PO SCH (21:00)
[2025-01-02] MEDS ORDERED: Carbidopa/Levodopa 25/100MG 1 TAB TAB PO SCH (21:00)
[2025-01-03 07:48] LABS: BASO # 0.0 10*3/uL (0.0-0.1); BASO % 0.1 % (0.0-1.0); EOS # 0.0 10*3/uL (0.0-0.4); EOS % 0.3 % (1.0-4.0); MEAN CELL VOLUME 96.4 fl (80.0-94.0); MEAN CORPUSCULAR HGB 32.0 pg (27.0-31.0); MEAN PLATELET VOLUME 8.9 fl (9.6-12.3); MONO # 0.4 10*3/uL (0.1-1.0); MONO % 6.4 % (3.0-9.0); NEUT # 5.3 10*3/uL (2.3-7.9); NEUT % 76.9 % (47.0-73.0); NUCLEATED RED BLOOD CELL 0.0 % (0.0-0.0); NUCLEATED RED BLOOD CELL 0.0 10*3/uL (0.0-0.0); PLATELET COUNT AUTOMATED 235 10*3/uL (130-400); RED CELL DISTRI WIDTH 13.1 % (0-14.5)
[2025-01-03 08:00] VITALS: BP 136/80
[2025-01-03] MEDS ORDERED: Midodrine Hydrochloride 5 MG TAB PO SCH (08:00)
[2025-01-03] MEDS ORDERED: Ziprasidone Hydrochloride 40 MG CAP PO SCH (08:00)
[2025-01-03 08:21] LABS: BUN 16 mg/dl (9-23); CARBAMAZEPINE (TEGRETOL) TOTAL 4.4 ug/ml (4-12); LDL CHOLESTEROL 51 mg/dL (9-159); SGPT/ALT 7 U/L (5-49)
[2025-01-03 08:23] LABS: VITAMIN D, 25-HYDROXY 57.5 ng/mL (30-100)
[2025-01-03] MEDS ORDERED: Desvenlafaxine Succinate 50 MG TER PO SCH (09:00)
[2025-01-03] MEDS ORDERED: MULTIVITAMIN 1 TAB TAB PO SCH (09:00)
[2025-01-03] MEDS ORDERED: ASPIRIN ENTERIC COATED 81 MG TAB PO SCH (09:00)
[2025-01-03] MEDS ORDERED: Clopidogrel Hydrogen Sulfate 75 MG TAB PO SCH (09:00)
[2025-01-03] MEDS ORDERED: FERROUS SULFATE 325 MG TAB PO SCH (09:00)
[2025-01-03] MEDS ORDERED: ATORVASTATIN CALCIUM 10 MG TAB PO SCH (09:00)
[2025-01-03] MEDS ORDERED: CYANOCOBALAMIN 500 MCG TAB PO SCH (10:00)
[2025-01-03 16:23] LABS: BILIRUBIN Negative (Negative); BLOOD Negative (Negative); CLARITY Clear (Clear); COLOR Yellow (Yellow); KETONE Trace (Negative); LEUKO ESTERASE Negative (Negative); NITRITE Negative (Negative); PH 6.5 (4.5-8.0); SPECIFIC GRAVITY 1.020 (1.001-1.030); UROBILINOGEN 0.2 E.U./dl (0.0-1.0)
[2025-01-03 16:36] LABS: BACTERIA 1+; EPITHELIAL CELLS 0-2; HYALINE CAST 0-2; RBC 0-2 rbc/hpf (0-2); WBC 0-2 wbc/hpf (0-5)
[2025-01-03 19:51] VITALS: BP 101/55
[2025-01-03] MEDS ORDERED: risperiDONE 0.5 MG TAB PO SCH (21:00)
[2025-01-04 08:00] VITALS: BP 125/65
[2025-01-04 20:00] VITALS: BP 120/62
[2025-01-05 08:00] VITALS: BP 90/56
[2025-01-05] MEDS ORDERED: VITAMIN E 400 IU CAP PO SCH (11:35)
[2025-01-05 20:00] VITALS: BP 132/76
[2025-01-06 08:30] VITALS: BP 121/61
[2025-01-06 20:00] VITALS: BP 133/94
[2025-01-07] MEDS ORDERED: Cholecalciferol 5,000 IU CAP (125 MCG) PO SCH (07:00)
[2025-01-07 07:44] VITALS: BP 111/63
[2025-01-07] MEDS ORDERED: ERGOCALCIFEROL 50,000 IU CAP (1.25 MG) PO SCH (08:00)
[2025-01-07 20:00] VITALS: BP 108/66
[2025-01-08 09:29] VITALS: BP 108/60
[2025-01-08 20:00] VITALS: BP 113/74
[2025-01-08] MEDS ORDERED: Trihexyphenidyl Hydrochlorid 2 MG TAB PO SCH (21:00)
[2025-01-09 07:56] VITALS: BP 125/64
[2025-01-09] MEDS ORDERED: Trihexyphenidyl Hydrochlorid 2 MG TAB PO SCH (13:00)
[2025-01-09 20:00] VITALS: BP 107/70
[2025-01-09] MEDS ORDERED: VITAMIN E 400 IU CAP PO SCH (21:00)
[2025-01-10 08:09] VITALS: BP 130/71
[2025-01-10 20:00] VITALS: BP 126/62
[2025-01-11 08:22] VITALS: BP 113/75
[2025-01-11 19:54] VITALS: BP 131/71
[2025-01-12 08:00] VITALS: BP 121/64
[2025-01-12 20:00] VITALS: BP 111/61
[2025-01-13 08:00] VITALS: BP 110/80
[2025-01-13 08:05] LABS: BASO # 0.0 10*3/uL (0.0-0.1); BASO % 0.4 % (0.0-1.0); EOS # 0.1 10*3/uL (0.0-0.4); EOS % 1.3 % (1.0-4.0); MEAN CELL VOLUME 99.8 fl (80.0-94.0); MEAN CORPUSCULAR HGB 32.1 pg (27.0-31.0); MEAN PLATELET VOLUME 9.2 fl (9.6-12.3); MONO # 0.4 10*3/uL (0.1-1.0); MONO % 7.4 % (3.0-9.0); NEUT # 3.4 10*3/uL (2.3-7.9); NEUT % 62.7 % (47.0-73.0); NUCLEATED RED BLOOD CELL 0.0 % (0.0-0.0); NUCLEATED RED BLOOD CELL 0.0 10*3/uL (0.0-0.0); PLATELET COUNT AUTOMATED 196 10*3/uL (130-400); RED CELL DISTRI WIDTH 13.7 % (0-14.5)
[2025-01-13 08:28] LABS: BUN 15 mg/dl (9-23); SGPT/ALT 15 U/L (5-49)
[2025-01-13 20:00] VITALS: BP 101/67
[2025-01-14 08:39] VITALS: BP 125/63
[2025-01-14 20:00] VITALS: BP 102/58
[2025-01-15 08:00] VITALS: BP 96/72
[2025-01-15] MEDS ORDERED: CLONAZEPAM0.5 M2 PO (10:21)
[2025-01-15] MEDS ORDERED: HYDROXYZINE PAM25 M1 PO (10:21)
[2025-01-15] MEDS ORDERED: UZEDY250 MG/0.7 SQ (10:21)
[2025-01-15] MEDS ORDERED: ZIPRASIDONE HCL40 MG PO (10:21)
[2025-01-15 10:38] VITALS: BP 124/68
[2025-01-15] MEDS ORDERED: TRIHEXYPHENIDYL2 M3 PO (10:53)
[2025-01-15] MEDS ORDERED: VITAMIN E180 M1 PO (10:53)
== END 2025-01-15 13:36 | DRG 761 ==
LOC: ED 15:06 → 3N 16:46 → EDHOLD 16:46 → 3N 17:17
PROVIDERS: Counselor Professional; Nurse Practitioner Family; ADMIT Psychiatry & Neurology Psychiatry; ATTEND Psychiatry & Neurology Psychiatry
PROC: GZHZZZZ Group Psychotherapy (ICD-10-PCS; principal; 2025-01-02)
PROC: GZ51ZZZ Individual Psychotherapy, Behavioral (ICD-10-PCS; 2025-01-02)
DX: F25.0 Schizoaffective disorder, bipolar type (principal); E44.1 Mild protein-calorie malnutrition; F33.2 Major depressive disorder, recurrent severe without psychotic features; R73.9 Hyperglycemia, unspecified; I10 Essential (primary) hypertension; G20.A1 Parkinson's disease without dyskinesia, without mention of fluctuations; G40.909 Epilepsy, unspecified, not intractable, without status epilepticus; E78.5 Hyperlipidemia, unspecified; N40.0 Benign prostatic hyperplasia without lower urinary tract symptoms; F42.9 Obsessive-compulsive disorder, unspecified; F25.1 Schizoaffective disorder, depressive type; D53.9 Nutritional anemia, unspecified; Z86.73 Personal history of transient ischemic attack (TIA), and cerebral infarction without residual deficits; Z68.25 Body mass index [BMI] 25.0-25.9, adult; Z88.8 Allergy status to other drugs, medicaments and biological substances